=== PATIENT | female | born 1935 | race Caucasian/White ===

== ENCOUNTER 2018-06-17 12:02 | Emergency (ER) | payer OTHER, MEDICARE ==
[~2018-06-17] VITALS: Ht 154.9 cm; Wt 75.3 kg
[~2018-06-17 12:02] MED LIST: ADVAIR 250-501 EACH INH; ADVAIR 250-501 EACH PO; ALBUTEROL2.5 MG/0.1 INH; AMOXICILLIN 50500 MG PO; ANASTROZOLE1 MG PO; ASPIRIN EC325 M1 PO; ATENOLOL 100MG100 M2 PO; AUGMENTIN 875875 M1 PO; CLARITIN10 M2 PO; CLARITIN10 MG PO; DIOVAN 80 MG TA80 M1 PO; DIOVAN40 MG PO; FLONASE 0.05%50 MCG NASAL; FLONASE 0.05%50 MCG SPRAY; FOSAMAX 70 MG T70 MG PO; HYDROCHLOROTHIA25 M1 PO; NORCO 5-325 TA1 EACH PO; PROAIR HFA8.5 GM INH; ROBITUSSIN DM118 ML PO; ROBITUSSIN15 MG PO; SINGULAIR 10 MG10 M1 PO; TRIAMTERENE-HC1 EAC1 PO; VITAMIN D-32000 UNIT PO; ZADITOR5 M1 OPHTHALMIC
[2018-06-17] MEDS ORDERED: COZAAR 25 MG TA25 M1 PO (13:08)
[2018-06-17] MEDS ORDERED: ADVAIR HFA 230M12 GM INH ×2 (13:09)
[2018-06-17] MEDS ORDERED: TUMS PO (13:13)
[2018-06-17] MEDS ORDERED: ECOTRIN325 MG PO ×2 (13:13)
[2018-06-17] MEDS ORDERED: TYLENOL EXTRA500 MG PO (13:13)
[2018-06-17] MEDS ORDERED: VITAMIN D3400 UNIT PO ×2 (13:14)
[2018-06-17] MEDS ORDERED: B-COMPLEX PLUS1 EACH PO (13:14)
[2018-06-17 13:33] LABS: HEMATOCRIT 37.9 % (37.0-47.0); HEMOGLOBIN 12.6 gm/dL (12.0-15.0); MCH 29.6 pg (26.0-34.0); MCHC 33.1 g/dL (28.0-37.0); MCV 89.3 fL (80.0-100.0); RBC 4.25 mil/uL (4.20-5.00); RDW 13.4 % (10.5-14.5); WBC 12.4 thou/uL (4.0-11.0)
[2018-06-17 13:42] LABS: ANION GAP 13 mmol/L (7-16); BUN 56 mg/dL (7-18); CALCIUM 10.5 mg/dL (8.5-10.1); CHLORIDE 102 mmol/L (98-107); CO2 23 mmol/L (21-32); CREATININE 1.7 mg/dL (0.6-1.0); GLUCOSE 124 mg/dL (74-106); POTASSIUM 4.2 mmol/L (3.5-5.1); SODIUM 138 mmol/L (136-145)
[2018-06-17 13:50] LABS: ALBUMIN 3.3 g/dL (3.4-5.0); LIPASE 144 U/L (73-393); SGOT 19 U/L (15-37); SGPT 31 U/L (30-65); TOTAL BILIRUBIN 0.5 mg/dL (<0.1-1.0); TOTAL PROTEIN 7.3 g/dL (6.4-8.2); TROPONIN-I <0.06 ng/mL (<0.06)
[2018-06-17 14:06] LABS: URINE BILIRUBIN NEGATIVE (Negative); URINE BLOOD NEGATIVE (Negative); URINE CLARITY CLEAR; URINE COLOR YELLOW; URINE GLUCOSE-RANDOM* NEGATIVE (Negative); URINE KETONES NEGATIVE (Negative); URINE LEUKOCYTES-REFLEX TRACE (Negative); URINE NITRITE-REFLEX NEGATIVE (Negative); URINE PROTEIN (DIPSTICK) NEGATIVE (Negative); URINE SPECIFIC GRAVITY <= 1.005 (1.005-1.035); URINE UROBILINOGEN 0.2 E.U./dl (0.2-1.0)
[2018-06-17] MEDS ORDERED: PYRIDOXINE HCL50 MG PO (14:26)
[2018-06-17] MEDS ORDERED: ZYRTEC10 M4 PO (14:26)
[2018-06-17] MEDS ORDERED: ROBITUSSIN COU237 M2 PO (14:27)
[2018-06-17] MEDS ORDERED: VITAMIN D1000 UNI1 PO (14:31)
[2018-06-17] MEDS ORDERED: ZOFRAN4 MG PO (15:13)
[2018-06-17] MEDS ORDERED: CIPROFLOXACIN500 M1 PO (15:13)
[2018-06-17] MEDS ORDERED: FLAGYL500 M1 PO (15:13)
[2018-06-17 15:34] VITALS: BP 134/56
--- NOTE | 2018-06-18 08:23 | EKG ---
[address] [place] [address] ELECTROCARDIOGRAM REPORT Name: JUNITO BASSETT Room #: DEP ANA Pride#: [id number] ������������������ Admission: 06/17/18 ������������������ Attend Phys: Discharge: 06/17/18 ������������������ Date of : 34 Report #: [id number] ����������������������������������������������������������������� [id number] THIS REPORT FOR: //name// [facility] ED Test Date: 2018-06-17 Test Time: 13:03:48 Pat Name: JUNITO BASSETT Department: Room: Gender: F Fisher Eel: . : 1935 Requested By: Jennifer Azul Order Number: [id number] MD: Kaiden Wong Measurements Intervals [place] Rate: 69 P: 9 DE: 222 QRS: -20 QRSD: 102 T: 2 QT: 396 QTc: 425 Interpretive Statements Sinus rhythm Prolonged DE interval Borderline left axis deviation poor R wave progression No previous ECG available for comparison Electronically Signed On 06-18-2018 8:22:45 CDT by Kaiden Wong [email or web address] ��������������������������������������������� <ELECTRONICALLY SIGNED> ���������������������������������������� By: Kaiden Wong MD, [facility] ��������������������������������������������� 06/18/18 0822 1303 1303 Kaiden Wong MD, FACC /EPI
== END 2018-06-17 15:35 | disposition home or self-care (01) ==
LOC: ER 12:02
PROVIDERS: Student in an Organized Health Care Education/Training Program
DX: K57.32 Diverticulitis of large intestine without perforation or abscess without bleeding (principal); I10 Essential (primary) hypertension; J45.909 Unspecified asthma, uncomplicated; Z90.49 Acquired absence of other specified parts of digestive tract; Z90.710 Acquired absence of both cervix and uterus; Z90.12 Acquired absence of left breast and nipple; Z88.1 Allergy status to other antibiotic agents; Z88.2 Allergy status to sulfonamides

== ENCOUNTER 2018-06-19 06:42 | Emergency (ER) | payer OTHER, MEDICARE ==
[~2018-06-19] VITALS: Ht 157.5 cm; Wt 75.3 kg
[~2018-06-19 06:42] MED LIST changes: +ADVAIR HFA 230M12 GM INH; +B-COMPLEX PLUS1 EACH PO; +CIPROFLOXACIN500 M1 PO; +COZAAR 25 MG TA25 M1 PO; +ECOTRIN325 MG PO; +FLAGYL500 M1 PO; +PYRIDOXINE HCL50 MG PO; +ROBITUSSIN COU237 M2 PO; +TUMS PO; +TYLENOL EXTRA500 MG PO; +VITAMIN D1000 UNI1 PO; +VITAMIN D3400 UNIT PO; +ZOFRAN4 MG PO; +ZYRTEC10 M4 PO
[2018-06-19] MEDS ORDERED: ANTIVERT25 MG PO (07:35)
[2018-06-19 08:47] VITALS: BP 135/53
== END 2018-06-19 08:59 | disposition home or self-care (01) ==
LOC: ER 06:42
DX: K57.92 Diverticulitis of intestine, part unspecified, without perforation or abscess without bleeding (principal); R11.0 Nausea; R42 Dizziness and giddiness; I10 Essential (primary) hypertension; J45.909 Unspecified asthma, uncomplicated; Z90.49 Acquired absence of other specified parts of digestive tract; Z90.710 Acquired absence of both cervix and uterus; Z85.3 Personal history of malignant neoplasm of breast; Z90.12 Acquired absence of left breast and nipple; Z88.2 Allergy status to sulfonamides; Z88.8 Allergy status to other drugs, medicaments and biological substances

== ENCOUNTER 2018-06-20 18:50 | Emergency (ER) | payer OTHER, MEDICARE ==
[~2018-06-20] VITALS: Ht 157.5 cm; Wt 75.3 kg
[~2018-06-20 18:50] MED LIST changes: +ANTIVERT25 MG PO
[2018-06-20 20:58] VITALS: BP 128/54
--- NOTE | 2018-06-21 01:27 | EKG ---
[address] [place] [address] ELECTROCARDIOGRAM REPORT Name: JUNITO BASSETT Room #: DEP ANA Pride#: [id number] ������������������ Admission: 06/20/18 ������������������ Attend Phys: Discharge: 06/20/18 ������������������ Date of : 34 Report #: [id number] ����������������������������������������������������������������� [id number] THIS REPORT FOR: //name// [facility] ED Test Date: 2018-06-20 Test Time: 19:34:09 Pat Name: JUNITO BASSETT Department: Room: Gender: F Finance Clerk: GILSON : 1935 Requested By: Black Campbell Order Number: [id number] MD: Jesu Galdamez Measurements Intervals [place] Rate: 63 P: 46 OK: 246 QRS: -16 QRSD: 104 T: 2 QT: 436 QTc: 447 Interpretive Statements Sinus rhythm Prolonged [place] interval Poor R-wave progression Leftward axis Nonspecific ST-T wave changes Compared to ECG 06/17/2018 13:03:48 No significant changes Electronically Signed On 06-21-2018 1:27:32 CDT by Jesu Galdamez [email or web address] ��������������������������������������������� <ELECTRONICALLY SIGNED> ���������������������������������������� By: Jesu Galdamez MD ��������������������������������������������� 04/04/107 33 33 Jesu Galdamez MD /EPI
== END 2018-06-20 20:59 | disposition home or self-care (01) ==
LOC: ER 18:50
DX: R42 Dizziness and giddiness (principal); M43.6 Torticollis; R10.9 Unspecified abdominal pain; I10 Essential (primary) hypertension; J45.909 Unspecified asthma, uncomplicated; Z85.3 Personal history of malignant neoplasm of breast; Z88.1 Allergy status to other antibiotic agents; Z88.2 Allergy status to sulfonamides; Z88.8 Allergy status to other drugs, medicaments and biological substances

== ENCOUNTER 2018-06-22 10:23 | Inpatient (IN) | payer OTHER, MEDICARE ==
[~2018-06-22] VITALS: Ht 157.5 cm; Wt 74.8 kg
[2018-06-22 11:20] VITALS: BP 117/55
[2018-06-22 13:00] LABS: EOSINOPHILS 1.1 % (0.0-3.0); HEMOGLOBIN 12.7 gm/dL (12.0-15.0); LYMPHOCYTES 50.6 % (24.0-44.0); MCH 29.7 pg (26.0-34.0); MCHC 33.4 g/dL (28.0-37.0); MCV 89.1 fL (80.0-100.0); MONOCYTES 5.8 % (1.0-8.0); POLYS 41.5 % (36.0-66.0); RBC 4.26 mil/uL (4.20-5.00); RDW 13.3 % (10.5-14.5)
[2018-06-22 13:01] LABS: PLATELET COUNT 147 thou/uL (150-400)
[2018-06-22 13:20] LABS: ALBUMIN 3.4 g/dL (3.4-5.0); CALCIUM 9.9 mg/dL (8.5-10.1); CREATININE 1.7 mg/dL (0.6-1.0); POTASSIUM 3.3 mmol/L (3.5-5.1); TOTAL BILIRUBIN 0.6 mg/dL (<0.1-1.0)
[2018-06-22 16:04] VITALS: BP 111/41
--- NOTE | 2018-06-22 18:44 | NUR ---
PT ARRIVED 1055 WITH ARRIVED FROM HOME. PT ALERT XS4. IV PLACED. ADMISSION PAPERWORK COMPLETED. PUT ON C-DIFF PRECAUTIONS. PT ADMITTED WITH DIVERTICULITIS.
[2018-06-22 19:50] VITALS: BP 103/43
[2018-06-23 04:39] VITALS: BP 107/47
--- NOTE | 2018-06-23 04:56 | NUR ---
ASSUMED CARE AT START OF SHIFT , CONITNUE TO HAVE LOOSE STOOLS, URINE SAMPLE SENT, DENIES NAUSEA, UP TO BATHROOM WITH CANE GAIT SLIGHTY UNSTEADY BEDALARM ON FOR SAFETY. DISCUSSED PLAN OF CARE AND AGREEABLE VERBALIZED UNDERSTANDING.
[2018-06-23 06:00] LABS: HEMATOCRIT 34.6 % (37.0-47.0); HEMOGLOBIN 11.5 gm/dL (12.0-15.0); MCHC 33.2 g/dL (28.0-37.0); MCV 90.1 fL (80.0-100.0); RBC 3.84 mil/uL (4.20-5.00); RDW 13.6 % (10.5-14.5); WBC 10.7 thou/uL (4.0-11.0)
[2018-06-23 06:25] LABS: CALCIUM 8.8 mg/dL (8.5-10.1); CREATININE 1.5 mg/dL (0.6-1.0); POTASSIUM 3.6 mmol/L (3.5-5.1)
[2018-06-23 06:28] LABS: URINE BILIRUBIN NEGATIVE (Negative); URINE BLOOD NEGATIVE (Negative); URINE CLARITY CLEAR; URINE COLOR YELLOW; URINE GLUCOSE-RANDOM* NEGATIVE (Negative); URINE KETONES NEGATIVE (Negative); URINE LEUKOCYTES-REFLEX TRACE (Negative); URINE NITRITE-REFLEX NEGATIVE (Negative); URINE PROTEIN (DIPSTICK) NEGATIVE (Negative); URINE UROBILINOGEN 0.2 E.U./dl (0.2-1.0)
[2018-06-23 07:57] VITALS: BP 103/38
--- NOTE | 2018-06-23 09:55 | NUR ---
CM VISITED WITH PT AT BEDSIDE, SHE PREFERRS GOING BY [facility], IS ABLE TO MAKE HER NEEDS KNOW. A & O X 3, ENJOYS VISITED WITH STAFF. INTRO TO CM AND TRANSITION OF CARE, HOME HEALTH AND POST ACUTE. PT REPORTED " HOME WITH JAKE, SAFE AND SUPPORTIVE. 1 FLOOR HOME, STAIR GLIDE TO LAUNDRY ROOM. RISEN TOILET, GRAB BAR AND POLE, SHOWER CHAIR. MANAGE OWN MEDICATION, COOK, CLEANS, STILL DRIVE VEHICLE. NO HH OR REHAB IN PAST. PLAN ON GOING HOME WHEN DR SAY READY. "/[facility]. WILL CONT FOLLOWING NEEDED FOR DC NEEDS. DCP HOME
--- NOTE | 2018-06-23 10:56 | NUR ---
Nutrition: Pt admitted with sigmoid diverticulitis. Seen for 2 pt risk. Appetite good. Has been on liquid diet since 06/17 for diverticulitis healing, now advanced to soft/fiber restricted. Intake 75%. UBW around 170 lbs, current 165 lbs. Provided nutrition education on diverticulitis/diverticulosis. Low nutrition risk.
--- NOTE | 2018-06-23 12:18 | H ---
[facility] [place] [address] HISTORY AND PHYSICAL Name: JUNITO BASSETT Room #: 464-P [facility] IN M.R.#: [id number] Admission: 06/22/18 ������������������ Attend Phys: Bo Agee MD Discharge: ������������������ Date of : 34 Report #: [id number] THIS REPORT FOR: //name// CC: Reinaldo Agee DATE OF SERVICE: 06/22/2018 CHIEF COMPLAINT: Abdominal pain and nausea. HISTORY OF PRESENT ILLNESS: The patient is an 83-year-old female who is admitted through the office with abdominal pain and recent development of nausea and diarrhea. She was having left lower quadrant and left abdominal sided pain last week and was seen in the ER around the . At that time, a CT suggested sigmoid diverticulitis. She was discharged home with Cipro and Flagyl; however, pain persisted and she ended up going back to the Emergency Room on Thursday and Thursday this past weekend. The same treatment plan was continued. However, last night and this morning she developed nausea and had a bout of diarrhea. Dr. Rider directed her for admission. PAST MEDICAL HISTORY: Breast cancer with remote left mastectomy in 2012, hypertension, asthma. PAST SURGICAL HISTORY: She had a lap juani in 1994, hysterectomy 2001. FAMILY HISTORY: Noncontributory. SOCIAL HISTORY: She is , lives at home. No chronic alcohol or tobacco use. ALLERGIES: SULFA, LEVAQUIN. MEDICATIONS: Flonase, Singulair, Claritin, Advair, hydrochlorothiazide, Diovan, atenolol, Claritin, Maxzide, Flagyl, Cipro. REVIEW OF SYSTEMS: She denies headache, chest pain, shortness of breath, abdominal pain, dysuria, syncope. OBJECTIVE: VITAL SIGNS: Temperature 36.2, pulse 67, respirations 13, blood pressure 117/55, O2 sat 99% on room air. GENERAL: She is awake and alert, in no distress. HEAD AND NECK: Unremarkable. LUNGS: Clear. HEART: Regular. ABDOMEN: Soft, normoactive bowel sounds. No rebound or guarding. [facility] [address] [place] [address] HISTORY AND PHYSICAL Name: JUNITO BASSETT Room #: 464-P [facility] IN M.R.#: [id number] Admission: 06/22/18 ������������������ Attend Phys: Bo Agee MD Discharge: ������������������ Date of : 34 Report #: [id number] EXTREMITIES: No cyanosis, clubbing or edema. NEUROLOGIC: Cranial nerves intact. She is alert and oriented. LABORATORY DATA: White count is 12, hemoglobin 12. Potassium 3.3, creatinine 1.7. CT abdomen revealed diverticular inflammation that has improved since the and almost resolved. ASSESSMENT: 1. Diverticulitis, sigmoid colon. 2. Hypokalemia. 3. Prerenal azotemia, likely medication effect. 4. Nausea, likely medication effect. 5. Hypertension. PLAN: Switch her to Zosyn. She may be having some GI distress from the Flagyl. If she has any more diarrhea, rule out Clostridium difficile, but she does not look toxic. CT imaging shows improvement of her underlying diverticulitis. Blood pressure is a little on the low end at this point, we will hold off on her medicines and repeat her lab in the morning. ��������������������������������������������� <ELECTRONICALLY SIGNED> ���������������������������������������� By: Bo Agee MD ��������������������������������������������� 06/23/18 1218 1544 1559 Bo Agee MD /nt
[2018-06-23 14:11] VITALS: BP 98/47
--- NOTE | 2018-06-23 18:41 | NUR ---
AAOX4 VERY PLESANT AND COOPERATIVE. NO C/O PAIN OR DISCOMFORT. LUNGS CLEAR ON ROOM AIR. SKIN INTACT. GOOD APPETITE. UAL IN ROOM WITHOUT ASSISTANCE. SLOW STEADY GAIT. IV RIGHT HAND FLUSHES EASLILY. NO BM THIS SHIFT. REMAINS IN CONTACT ISOLATION.
[2018-06-23 19:49] VITALS: BP 113/48
[2018-06-24 05:15] VITALS: BP 123/52
[2018-06-24 06:07] LABS: CALCIUM 9.2 mg/dL (8.5-10.1); CREATININE 1.4 mg/dL (0.6-1.0); POTASSIUM 3.6 mmol/L (3.5-5.1)
--- NOTE | 2018-06-24 07:38 | NUR ---
PATIENT WAS COMFORTABLE AND SLEPT MOST OF THE NIGHT. PATIENT DID NOT COMPLAIN ABOUT N/V OF LOOSE STOOLS THIS SHIFT. ABX TREATMENT WAS COMPLETED. PATIENT IS PROGRESSING TOWARDS DISCHARGE GOALS. POSSIBLE DC IN THE AM.
[2018-06-24 07:55] VITALS: BP 107/39
[2018-06-24] MEDS ORDERED: CIPRO500 MG PO (10:10)
[2018-06-24 10:25] VITALS: BP 107/39
--- NOTE | 2018-06-24 11:35 | NUR ---
ASSUMED PATIENT CARE AT 0715. A&OX4. NO COMPLAINTS OF PAIN. STAND BY ASSIST. USES CANE. STOOL THIS AM, STOOL SOFT. CLEARED FOR DISCHARGE BY DOCTOR. IV DC'D. DISCHARGE INSTRUCTIONS GIVEN.
--- NOTE | 2018-06-29 09:32 | D ---
[facility] [place] [address] DISCHARGE SUMMARY Name: JUNITO BASSETT Room #: 464-P [facility] IN M.R.#: [id number] Admission: 06/22/18 ������������������ Attend Phys: Bo Agee MD Discharge: 06/24/18 ������������������ Date of : 34 Report #: [id number] THIS REPORT FOR: //name// CC: Reinaldo Agee FINAL DIAGNOSIS: Diverticulitis. HOSPITAL COURSE: The patient was admitted after three ER trips for diverticulitis. She was complaining of nausea and diarrhea. The nausea, I felt, was related to oral Flagyl, which was discontinued. She received IV Zosyn. Followup CT showed near resolution of the area of inflammation on the sigmoid colon. Blood cultures were negative. She had some mild prerenal azotemia related to her diuretic, which was discontinued. Blood pressure medicines were held as well. She had no other interval complication. There were some soft stools and a C. diff was ordered, but subsequently cancelled as she was not having typical diarrhea. PHYSICAL EXAMINATION: GENERAL: On the day of discharge, she was awake and alert, in no distress. VITAL SIGNS: Stable. LUNGS: Clear. HEART: Regular. ABDOMEN: Soft. Normoactive bowel sounds. EXTREMITIES: No edema. DISPOSITION: She will be discharged to home with diet and activity as tolerated. She will finish 3 more days of Cipro. I have asked her to hold her atenolol at home until she comes in for a blood pressure check. ��������������������������������������������� <ELECTRONICALLY SIGNED> ���������������������������������������� By: Bo Agee MD ��������������������������������������������� 06/29/18 0932 1102 1327 Bo Agee MD /nt
== END 2018-06-24 11:48 | disposition home or self-care (01) | DRG 391 ==
LOC: 4W 10:23 → ENTRNSPT 06-24 11:34 → EDTRNSPTSTS 06-24 11:36 → 4W 06-24 11:48
PROVIDERS: ADMIT Internal Medicine Geriatric Medicine
DX: K57.32 Diverticulitis of large intestine without perforation or abscess without bleeding (principal); N17.0 Acute kidney failure with tubular necrosis; I10 Essential (primary) hypertension; J45.909 Unspecified asthma, uncomplicated; E87.6 Hypokalemia; E86.0 Dehydration; Z85.3 Personal history of malignant neoplasm of breast; Z90.12 Acquired absence of left breast and nipple; Z88.2 Allergy status to sulfonamides; Z88.8 Allergy status to other drugs, medicaments and biological substances; Z88.1 Allergy status to other antibiotic agents; Z79.82 Long term (current) use of aspirin; Z79.899 Other long term (current) drug therapy; Z90.710 Acquired absence of both cervix and uterus; Z90.49 Acquired absence of other specified parts of digestive tract
CPT/HCPCS: 10045; 10047

== ENCOUNTER 2019-03-17 13:10 | Emergency (ER) | payer OTHER, MEDICARE ==
[~2019-03-17] VITALS: Ht 157.5 cm; Wt 72.6 kg
[~2019-03-17 13:10] MED LIST changes: +CIPRO500 MG PO
[2019-03-17 15:57] LABS: HEMATOCRIT 40.9 % (37.0-47.0); HEMOGLOBIN 13.3 gm/dL (12.0-15.0); MCH 29.6 pg (26.0-34.0); MCHC 32.6 g/dL (28.0-37.0); MCV 90.9 fL (80.0-100.0); PLATELET COUNT 144 thou/uL (150-400); RDW 14.4 % (10.5-14.5); WBC 15.2 thou/uL (4.0-11.0)
[2019-03-17 16:15] LABS: ABSOLUTE NEUTROPHILS 5.9 thou/uL (1.4-8.2); ATYPICAL LYMPHS 39 %
[2019-03-17 16:16] LABS: ALBUMIN 3.8 g/dL (3.4-5.0); CREATININE 1.2 mg/dL (0.6-1.0); PLATELET ESTIMATE NORMAL; POTASSIUM 3.7 mmol/L (3.5-5.1); TOTAL BILIRUBIN 0.7 mg/dL (<0.1-1.0); TOTAL PROTEIN 7.5 g/dL (6.4-8.2)
[2019-03-17 16:17] LABS: CALCIUM 10.6 mg/dL (8.5-10.1)
[2019-03-17 17:32] LABS: URINE BILIRUBIN NEGATIVE (Negative); URINE BLOOD NEGATIVE (Negative); URINE CLARITY CLOUDY; URINE COLOR YELLOW; URINE GLUCOSE-RANDOM* NEGATIVE (Negative); URINE KETONES NEGATIVE (Negative); URINE PROTEIN (DIPSTICK) NEGATIVE (Negative); URINE UROBILINOGEN 0.2 E.U./dl (0.2-1.0)
[2019-03-17 17:39] LABS: URINE LEUKOCYTES-REFLEX 2+ (Negative); URINE NITRITE-REFLEX POSITIVE (Negative)
[2019-03-17 17:49] LABS: BACTERIA-REFLEX >30 Many /HPF (None Seen); CASTS None Seen /LPF (None Seen); CRYSTALS None Seen /LPF (None Seen); SQUAMOUS 0-3 Few /LPF (0-3); URINE RBC None Seen /HPF (0-2); URINE WBC-REFLEX >25 Many /HPF (0-5)
[2019-03-17] MEDS ORDERED: MACROBID 100 M100 MG PO (18:44)
[2019-03-17 19:11] VITALS: BP 132/77
== END 2019-03-17 19:11 | disposition home or self-care (01) ==
LOC: ER 13:10
PROVIDERS: Physician Assistant
DX: N39.0 Urinary tract infection, site not specified (principal); D72.829 Elevated white blood cell count, unspecified; I10 Essential (primary) hypertension; J45.909 Unspecified asthma, uncomplicated; Z85.3 Personal history of malignant neoplasm of breast; Z90.12 Acquired absence of left breast and nipple; Z90.49 Acquired absence of other specified parts of digestive tract; Z90.710 Acquired absence of both cervix and uterus; Z91.048 Other nonmedicinal substance allergy status; Z88.1 Allergy status to other antibiotic agents; Z88.2 Allergy status to sulfonamides

== ENCOUNTER → 2019-03-29 | Outpatient (CLI) | payer OTHER, MEDICARE ==
[~2019-03-29] MED LIST changes: +MACROBID 100 M100 MG PO
== END ==
LOC: SJCVC 15:24
DX: I21.29 ST elevation (STEMI) myocardial infarction involving other sites (principal); I44.0 Atrioventricular block, first degree; R94.31 Abnormal electrocardiogram [ECG] [EKG]; I10 Essential (primary) hypertension; E78.5 Hyperlipidemia, unspecified; R55 Syncope and collapse; J45.909 Unspecified asthma, uncomplicated; Z85.3 Personal history of malignant neoplasm of breast; Z79.899 Other long term (current) drug therapy

== ENCOUNTER → 2019-09-07 | Outpatient (CLI) | payer OTHER, MEDICARE | LOC: SJCVC 14:19 | PROVIDERS: ATTEND Internal Medicine | DX: I44.0 Atrioventricular block, first degree (principal); R94.31 Abnormal electrocardiogram [ECG] [EKG]; I10 Essential (primary) hypertension; R55 Syncope and collapse; E78.5 Hyperlipidemia, unspecified; C91.10 Chronic lymphocytic leukemia of B-cell type not having achieved remission; C50.412 Malignant neoplasm of upper-outer quadrant of left female breast; J45.909 Unspecified asthma, uncomplicated; Z17.0 Estrogen receptor positive status [ER+]; Z79.899 Other long term (current) drug therapy; Z82.49 Family history of ischemic heart disease and other diseases of the circulatory system ==

== ENCOUNTER 2019-11-27 16:45 | Emergency (ER) | payer OTHER, MEDICARE ==
[~2019-11-27] VITALS: Ht 160 cm; Wt 76.7 kg
[2019-11-27] MEDS ORDERED: ATENOLOL 50MG T50 MG PO (17:09)
[2019-11-27] MEDS ORDERED: TRIAMTERENE/HCT1 CA1 PO (17:09)
[2019-11-27] MEDS ORDERED: WIXELA 250-501 EACH INH (17:10)
[2019-11-27] MEDS ORDERED: VITAMIN B-6100 MG PO (17:12)
[2019-11-27] MEDS ORDERED: NOLVADEX20 MG PO (17:14)
[2019-11-27] MEDS ORDERED: TRAMADOL 50 MG50 MG PO ×2 (17:15)
[2019-11-27] MEDS ORDERED: AUGMENTIN 500-1 EACH PO (19:46)
[2019-11-27 19:48] VITALS: BP 128/51
--- NOTE | 2019-11-28 10:18 | EKG ---
[facility] [place] [address] ELECTROCARDIOGRAM REPORT Name: JUNITO BASSETT Room #: DEP Bigg#: [id number] Admission: 11/27/19 Attend Phys: Discharge: 11/27/19 Date of : 34 Report #: [id number] THIS REPORT FOR: cc: Reinaldo Rider MD, Christopher B. MD Lundgren,Kaiden Franco MD [facility] ~ THIS REPORT FOR: //name// [facility] ED Test Date: 2019-11-27 Test Time: 17:13:05 Pat Name: JUNITO BASSETT Department: Room: Gender: Endoscope Technician: NO : 1935 Requested By: Sandra Campbell Order Number: [id number] MD: Kaiden Wong Measurements Intervals [place] Rate: 61 P: 0 SC: 194 QRS: -21 QRSD: 97 T: 0 QT: 408 QTc: 411 Interpretive Statements Sinus rhythm with prolonged SC interval Inferior infarct, old Poor R wave progression Compared to ECG 06/20/2018 19:34:09 No significant change was found Electronically Signed On 11-28-2019 10:18:00 CDT by Kaiden Wong [email or web address] <ELECTRONICALLY SIGNED> By: Kaiden Wong MD, [facility] 11/28/19 1018 1713 1713 Kaiden Wong MD, [facility] /EPI
== END 2019-11-27 20:13 | disposition home or self-care (01) ==
LOC: ER 16:45
DX: S01.511A Laceration without foreign body of lip, initial encounter (principal); S80.02XA Contusion of left knee, initial encounter; I10 Essential (primary) hypertension; J45.909 Unspecified asthma, uncomplicated; Z90.710 Acquired absence of both cervix and uterus; Z79.899 Other long term (current) drug therapy; Z79.82 Long term (current) use of aspirin; Z88.2 Allergy status to sulfonamides; Z91.048 Other nonmedicinal substance allergy status; Z91.09 Other allergy status, other than to drugs and biological substances; Z88.1 Allergy status to other antibiotic agents; W18.39XA Other fall on same level, initial encounter; Y93.89 Activity, other specified; Y92.89 Other specified places as the place of occurrence of the external cause; Y99.8 Other external cause status

== ENCOUNTER 2019-12-02 12:37 | Emergency (ER) | payer OTHER, MEDICARE ==
[~2019-12-02] VITALS: Ht 162.6 cm; Wt 77.1 kg
--- NOTE | ~2019-12-02 | EMS ---
[address] [address] EMS Patient Care Report Name: JUNITO BASSETT Room #: PRE ANA Pride#: [id number] Admission: Attend Phys: Discharge: Date of : 34 Report #: [id number] THIS REPORT FOR: //name// Report Transmitted: 12/02/2019 12:49 EMS Care Summary [facility] MED-ACT Incident [id number] @ 12/02/2019 12:06 Incident Location [address] [place] [address] Patient JUNITO BASSETT Female, 84 Years 1935 Patient Address [address] [place] [address] Patient History Hypertension (HTN), Patient Allergies No known allergies, Patient Medications None Reported, Chief Complaint nausea Disposition Transported No Lights/[place] Dispatch Reason Sick Person Transported To [facility] Narrative Upon arrival pt was sitting on a chair, presented w/o distress. Pt stated she went to the bathroom thought she was having diarrhea and started feeling nauseous. Pt denied vomiting or syncope. Pt stated she felt slightly dizzy. Pt stated she called 911 because her unable to take her per [facility] [address] [address] EMS Patient Care Report Name: JUNITO BASSETT Room #: [facility] Memo.#: [id number] Admission: Attend Phys: Discharge: Date of : 34 Report #: [id number] vehicle. Pt denied nausea upon contact and was advised to report any nausea to receive nausea medicine when it needed. Pt walked few steps to the stretcher w/o difficulty and then moved into the unit. in the unit, pt's vitals were monitored and remained stable during transport. Initial Vitals @PTAP: 67,BP: 133/79,SpO2: 99, @12:25P: 64,R: 18,BP: 147/69,Pain: 0/10,GCS: 15,SpO2: 100,Revised Trauma: 12,MD Suspected: false Assessments @12:31MENTAL:No Abnormalities,SKIN:No Abnormalities,HEENT:Head/Face: No Abnormalities,Eyes: No Abnormalities,Neck/Airway: No Abnormalities,LUNG SOUNDS:General: No Abnormalities,Left Upper: No Abnormalities,Right Upper: No Abnormalities,Left Lower: No Abnormalities,Right Lower: No Abnormalities,ABDOMEN:General: No Abnormalities,Left Upper: No Abnormalities,Right Upper: No Abnormalities,Left Lower: No Abnormalities,Right Lower: No Abnormalities,PELVIS//GI:No Abnormalities,EXTREMITIES:Left Arm: No Abnormalities,Right Arm: No Abnormalities,Left Leg: No Abnormalities,Right Leg: No Abnormalities,PULSE:NEURO:No Abnormalities, Impression Nausea Timeline DOG AND CAT FOOD COOK,BP: 133/79 M,PULSE: 67,RR: R,SPO2: 99 Ox,ETCO2: ,BG: ,PAIN: ,GCS: , 12:05,Call Received 12:05,Psap Call 12:06,Dispatched 12:07,En Route 12:16,On Scene 12:17,At Patient 12:24,Depart Scene 12:25,BP: 147/69 M,PULSE: 64,RR: 18 R,SPO2: 100 Ox,ETCO2: ,BG: ,PAIN: 0,GCS: 15, 12:32,At Destination 12:48,Call Closed Disclaimer v1.1 Copyright 2020 [employer] This EMS Care Summary contains data elements from the applicable legal record (which may be displayed differently). It is designed to provide pertinent information for the following purposes: continuity of care, clinical quality, and state data reporting. The complete legal record is available to ED staff and administrators of the receiving hospital in [employer]'s Patient Tracker. All data [facility] [address] [place] [address] EMS Patient Care Report Name: JUNITO BASSETT Room #: PRE M.RBe#: [id number] Admission: Attend Phys: Discharge: Date of : 34 Report #: [id number] is provided "as is."
[~2019-12-02 12:37] MED LIST changes: +ATENOLOL 50MG T50 MG PO; +AUGMENTIN 500-1 EACH PO; +NOLVADEX20 MG PO; +TRAMADOL 50 MG50 MG PO; +TRIAMTERENE/HCT1 CA1 PO; +VITAMIN B-6100 MG PO; +WIXELA 250-501 EACH INH
[2019-12-02 13:46] LABS: ABSOLUTE NEUTROPHILS 5.3 thou/uL (1.4-8.2); BASOPHILS 1.1 % (0.0-2.0); EOSINOPHILS 1.3 % (0.0-3.0); HEMATOCRIT 38.4 % (37.0-47.0); HEMOGLOBIN 12.8 gm/dL (12.0-15.0); LYMPHOCYTES 44.8 % (24.0-44.0); MCH 30.7 pg (26.0-34.0); MCHC 33.4 g/dL (28.0-37.0); MCV 91.9 fL (80.0-100.0); MONOCYTES 5.8 % (1.0-8.0); RBC 4.18 mil/uL (4.20-5.00); RDW 13.6 % (10.5-14.5); WBC 11.3 thou/uL (4.0-11.0)
--- NOTE | 2019-12-02 13:56 | EKG ---
[facility] [place] [address] ELECTROCARDIOGRAM REPORT Name: JUNITO BASSETT Room #: PRE M.R.#: [id number] Admission: Attend Phys: Discharge: Date of : 34 Report #: [id number] THIS REPORT FOR: cc: Reinaldo Rider MD, Christopher B. 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 Control Counselor: LEONEL : 1935 Requested By: Evon Deshpande Order Number: [id number] MD: Fred Samson Measurements Intervals [place] Rate: 61 P: -21 MO: 268 QRS: -19 QRSD: 98 T: 4 QT: 402 QTc: 405 Interpretive Statements Sinus rhythm Prolonged [place] interval Borderline left axis deviation Anterior infarct, old Compared to ECG 11/27/2019 17:13:05 Poor R-wave progression no longer present Myocardial infarct finding still present Electronically Signed On 12-02-2019 13:56:02 CDT by Fred Samson [email or web address] <ELECTRONICALLY SIGNED> By: Fred Samson MD, FAC 12/02/19 1356 1253 1253 Fred Samson MD, [facility] /EPI
[2019-12-02 14:01] LABS: URINE BILIRUBIN NEGATIVE (Negative); URINE BLOOD NEGATIVE (Negative); URINE CLARITY CLEAR; URINE COLOR YELLOW; URINE GLUCOSE-RANDOM* NEGATIVE (Negative); URINE KETONES NEGATIVE (Negative); URINE LEUKOCYTES-REFLEX NEGATIVE (Negative); URINE NITRITE-REFLEX NEGATIVE (Negative); URINE PROTEIN (DIPSTICK) NEGATIVE (Negative); URINE UROBILINOGEN 0.2 E.U./dl (0.2-1.0)
[2019-12-02 14:19] LABS: AMP/METHAMP Negative (Negative); BARBITURATES Negative (Negative); BENZODIAZEPINES Negative (Negative); COCAINE Negative (Negative); METHADONE Negative (Negative); OPIATES Negative (Negative); PCP Negative (Negative)
[2019-12-02 14:24] LABS: PLATELET COUNT 106 thou/uL (150-400)
[2019-12-02 14:31] LABS: ANION GAP 13 mmol/L (7-16); BUN 28 mg/dL (7-18); CALCIUM 9.6 mg/dL (8.5-10.1); CHLORIDE 100 mmol/L (98-107); CO2 22 mmol/L (21-32); GLUCOSE 103 mg/dL (74-106); POTASSIUM 4.4 mmol/L (3.5-5.1); SODIUM 135 mmol/L (136-145)
[2019-12-02 14:41] LABS: ALBUMIN 3.3 g/dL (3.4-5.0); SGOT 29 U/L (15-37); SGPT 22 U/L (30-65); TOTAL BILIRUBIN 0.9 mg/dL (0.2-1.0); TOTAL PROTEIN 6.9 g/dL (6.4-8.2); TROPONIN-I <0.06 ng/mL (<0.06)
[2019-12-02] MEDS ORDERED: TRIAMTERENE/HCT1 CA1 PO (15:31)
[2019-12-02] MEDS ORDERED: WIXELA 250-501 EACH INH (15:31)
[2019-12-02 16:33] VITALS: BP 161/64
== END 2019-12-02 16:33 | disposition home or self-care (01) ==
LOC: ER 12:37
PROVIDERS: Physician Assistant
DX: R53.1 Weakness (principal); I10 Essential (primary) hypertension; J45.909 Unspecified asthma, uncomplicated; Z90.710 Acquired absence of both cervix and uterus; Z79.899 Other long term (current) drug therapy; Z88.2 Allergy status to sulfonamides; Z88.1 Allergy status to other antibiotic agents; Z91.048 Other nonmedicinal substance allergy status; Z91.09 Other allergy status, other than to drugs and biological substances

== ENCOUNTER → 2020-03-08 | Outpatient (CLI) | payer OTHER, MEDICARE | LOC: SJCVC 13:14 | PROVIDERS: ATTEND Internal Medicine | DX: R94.31 Abnormal electrocardiogram [ECG] [EKG] (principal); I44.0 Atrioventricular block, first degree; I10 Essential (primary) hypertension; E78.5 Hyperlipidemia, unspecified; R55 Syncope and collapse; E78.00 Pure hypercholesterolemia, unspecified; J45.909 Unspecified asthma, uncomplicated; Z79.899 Other long term (current) drug therapy ==

== ENCOUNTER → 2020-09-06 | Outpatient (CLI) | payer OTHER, MEDICARE | LOC: SJCVC 13:14 | PROVIDERS: ATTEND Internal Medicine | DX: R94.31 Abnormal electrocardiogram [ECG] [EKG] (principal); I44.0 Atrioventricular block, first degree; I10 Essential (primary) hypertension; E78.5 Hyperlipidemia, unspecified; R55 Syncope and collapse; E78.00 Pure hypercholesterolemia, unspecified; J45.909 Unspecified asthma, uncomplicated; Z82.49 Family history of ischemic heart disease and other diseases of the circulatory system; Z79.82 Long term (current) use of aspirin; Z79.899 Other long term (current) drug therapy; Z88.8 Allergy status to other drugs, medicaments and biological substances ==

== ENCOUNTER 2020-12-27 08:20 | Emergency (ER) | payer OTHER, MEDICARE ==
[~2020-12-27] VITALS: Ht 160 cm; Wt 75.8 kg
[2020-12-27] MEDS ORDERED: COZAAR 25 MG TA25 M1 PO (08:35)
[2020-12-27] MEDS ORDERED: ATENOLOL 25 MG25 M1 PO (08:35)
[2020-12-27] MEDS ORDERED: WIXELA 250-501 EACH INH (08:36)
[2020-12-27] MEDS ORDERED: TRIAMTERENE/HCT1 CA1 PO (08:36)
[2020-12-27] MEDS ORDERED: ZYRTEC10 M5 PO (08:37)
[2020-12-27] MEDS ORDERED: VITAMIN D350 MC4 PO (08:38)
[2020-12-27] MEDS ORDERED: VITAMIN B-650 M1 PO (08:39)
[2020-12-27] MEDS ORDERED: SINGULAIR 10 MG10 M1 PO (08:39)
[2020-12-27] MEDS ORDERED: FLONASE 0.05%50 MCG NARES (08:40)
[2020-12-27] MEDS ORDERED: ECOTRIN325 MG PO (08:40)
[2020-12-27] MEDS ORDERED: PROAIR HFA8.5 GM INH (08:41)
[2020-12-27] MEDS ORDERED: TUMS200 MG PO (08:42)
[2020-12-27] MEDS ORDERED: ROBITUSSIN15 MG/5 ML PO (08:42)
[2020-12-27] MEDS ORDERED: TRAMADOL 50 MG50 MG PO (08:45)
[2020-12-27] MEDS ORDERED: ZADITOR5 M1 (08:45)
[2020-12-27] MEDS ORDERED: PREVAGEN (08:48)
[2020-12-27 09:06] LABS: HEMATOCRIT 38.9 % (37.0-47.0); HEMOGLOBIN 12.7 gm/dL (12.0-15.0); MCH 30.7 pg (26.0-34.0); MCHC 32.7 g/dL (28.0-37.0); MCV 93.8 fL (80.0-100.0); PLATELET COUNT 139 thou/uL (150-400); RBC 4.15 mil/uL (4.20-5.00); RDW 14.6 % (10.5-14.5); WBC 20.5 thou/uL (4.0-11.0)
[2020-12-27 09:21] LABS: CALCIUM 10.3 mg/dL (8.5-10.1); CREATININE 1.2 mg/dL (0.6-1.0)
[2020-12-27 10:06] LABS: ABSOLUTE NEUTROPHILS 4.3 thou/uL (1.4-8.2); ATYPICAL LYMPHS 9 %
[2020-12-27 10:07] LABS: ANISOCYTOSIS 1+
[2020-12-27 10:28] LABS: URINE BILIRUBIN NEGATIVE (Negative); URINE BLOOD TRACE (Negative); URINE CLARITY CLEAR; URINE COLOR YELLOW; URINE GLUCOSE-RANDOM* NEGATIVE (Negative); URINE KETONES NEGATIVE (Negative); URINE NITRITE-REFLEX NEGATIVE (Negative); URINE PROTEIN (DIPSTICK) NEGATIVE (Negative); URINE SPECIFIC GRAVITY <= 1.005 (1.005-1.035); URINE UROBILINOGEN 0.2 E.U./dl (0.2-1.0)
[2020-12-27 10:33] LABS: URINE LEUKOCYTES-REFLEX 1+ (Negative)
[2020-12-27 10:37] LABS: BACTERIA-REFLEX 1-9 Few /HPF (None Seen); CASTS None Seen /LPF (None Seen); CRYSTALS None Seen /LPF (None Seen); SQUAMOUS 0-3 Few /LPF (0-3); URINE RBC None Seen /HPF (NONE SEEN); URINE WBC-REFLEX 6-15 Few /HPF (0-5)
[2020-12-27] MEDS ORDERED: MACROBID 100 M100 M1 PO (10:59)
[2020-12-27 12:23] VITALS: BP 144/52
[2020-12-28] MEDS ORDERED: ATENOLOL 25 MG25 M1 PO (09:32)
== END 2020-12-27 12:24 | disposition home or self-care (01) ==
LOC: ER 08:20
PROVIDERS: Emergency Medicine
DX: N39.0 Urinary tract infection, site not specified (principal); R10.32 Left lower quadrant pain; I10 Essential (primary) hypertension; Z90.710 Acquired absence of both cervix and uterus; J45.909 Unspecified asthma, uncomplicated; Z90.12 Acquired absence of left breast and nipple; Z85.3 Personal history of malignant neoplasm of breast; Z85.6 Personal history of leukemia; Z79.82 Long term (current) use of aspirin; Z79.1 Long term (current) use of non-steroidal anti-inflammatories (NSAID); Z79.899 Other long term (current) drug therapy; Z79.891 Long term (current) use of opiate analgesic; Z88.6 Allergy status to analgesic agent; Z88.2 Allergy status to sulfonamides; Z91.048 Other nonmedicinal substance allergy status; Z91.09 Other allergy status, other than to drugs and biological substances; Z88.8 Allergy status to other drugs, medicaments and biological substances

== ENCOUNTER 2020-12-28 09:28 | Inpatient (IN) | payer OTHER, MEDICARE ==
[~2020-12-28] VITALS: Ht 162.6 cm; Wt 94.1 kg
[2020-12-28] VITALS (7 sets, daily range): BP systolic 131–159; BP diastolic 50–77
--- NOTE | ~2020-12-28 | EMS ---
[facility] [place] [address] EMS Patient Care Report Name: JUNITO BASSETT Room #: 437-P ADM IN M.R.#: [id number] Admission: 12/28/20 Attend Phys: Jorge L Sampson MD Discharge: Date of : 34 Report #: [id number] THIS REPORT FOR: //name// Report Transmitted: 12/28/2020 11:26 EMS Care Summary [facility] MED-ACT Incident [id number] @ 12/28/2020 08:55 Incident Location [address] [place] [address] Patient JUNITO BASSETT Female, 85 Years 1935 Patient Address [address] [place] [address] Patient History Hypertension (HTN),Breast Cancer,Urinary Tract Infection (UTI), Patient Allergies Sulfa,Levaquin, Patient Medications Albuterol, Fosamax, Triamterene, Losartan, Atenolol, Letrozole, Boniva, Chief Complaint I feel very weak and my low back hurts. Disposition Transported No Lights/[place] Dispatch Reason Falls Transported To [facility] Narrative HISTORY. EMS activated to transport this pt to [facility] for evaluation and treatment. Yesterday, this pt was seen at [facility] for a bladder infection. The pt was treated and sent home with medication. The pts was helping the pt get back into her home when she states her legs just "buckled" and she fell to [facility] [place] [address] EMS Patient Care Report Name: JUNITO BASSETT Room #: 437-P ADM IN M.R.#: [id number] Admission: 12/28/20 Attend Phys: Jorge L Sampsno MD Discharge: Date of : 34 Report #: [id number] the ground. No loss of consciousness and the pt did not hit her head. The pt was helped back in the house by additional family members. The pt was not transported back to [facility] at that time. Today, the pt states she feels weak and her low back is in more pain than normal. The pt denies any SOB, chest pain to N/V. This pt has been vaccinated and had her booster. Upon our arrival, the pt is sitting in her wheelchair near the front door. ASSESSMENT INDICATED IN THE CHART. TREATMENT. The pt is lifted from her wheelchair to the EMS cot via a two-person lift. No additional is needed. TRANSPORT. [facility] is the destination. [facility] is contacted. Pt information is given to the staff. VS are monitored. No change. DISPOSITION. The pt is lifted to the ED bed via sheet lift. Pt report and paperwork are given to nursing. M 1149 is clear. 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,BP: 150/70 M,PULSE: 70,RR: 18 R,SPO2: 97 Ox,ETCO2: ,BG: ,PAIN: ,GCS: 15, 08:53,Call Received 08:53,Psap Call 08:55,Dispatched 08:56,En Route 09:09,On Scene 09:10,At Patient 09:16,BP: 149/79 M,PULSE: 68,RR: 16 R,SPO2: 97 Ox,ETCO2: ,BG: ,PAIN: 6,GCS: 15, 09:17,Depart Scene 09:23,BP: 141/66 M,PULSE: 69,RR: 16 R,SPO2: 98 Ox,ETCO2: ,BG: ,PAIN: ,GCS: 15, 09:24,At Destination 09:41,Call Closed Disclaimer v1.1 Copyright 2020 [employer] This EMS Care Summary contains data elements from the applicable legal record [facility] [address] [place] [address] EMS Patient Care Report Name: BASSETTJUNITO Room #: 437-P ADM IN M.R.#: [id number] Admission: 12/28/20 Attend Phys: Jorge L Sampson MD Discharge: Date of : 34 Report #: [id number] (which may be displayed differently). It is designed to provide pertinent information for the following purposes: continuity of care, clinical quality, and state data reporting. The complete legal record is available to ED staff and administrators of the receiving hospital in [facility]s Patient Tracker. All data is provided "as is."
[~2020-12-28 09:28] MED LIST changes: +ATENOLOL 25 MG25 M1 PO; +FLONASE 0.05%50 MCG NARES; +MACROBID 100 M100 M1 PO; +PREVAGEN; +ROBITUSSIN15 MG/5 ML PO; +TUMS200 MG PO; +VITAMIN B-650 M1 PO; +VITAMIN D350 MC4 PO; +ZADITOR5 M1; +ZYRTEC10 M5 PO
[2020-12-28] MEDS ORDERED: ATENOLOL 25 MG25 M1 PO (09:32)
[2020-12-28 10:12] LABS: HEMATOCRIT 41.4 % (37.0-47.0); HEMOGLOBIN 13.3 gm/dL (12.0-15.0); MCH 30.3 pg (26.0-34.0); MCHC 32.1 g/dL (28.0-37.0); MCV 94.3 fL (80.0-100.0); PLATELET COUNT 137 thou/uL (150-400); RBC 4.39 mil/uL (4.20-5.00); RDW 14.8 % (10.5-14.5); WBC 20.5 thou/uL (4.0-11.0)
[2020-12-28 10:15] LABS: CALCIUM 10.1 mg/dL (8.5-10.1); CREATININE 1.4 mg/dL (0.6-1.0)
[2020-12-28 11:26] LABS: ATYPICAL LYMPHS 1 %
[2020-12-28 11:27] LABS: ABSOLUTE NEUTROPHILS 4.1 thou/uL (1.4-8.2)
--- NOTE | 2020-12-28 14:24 | NUR ---
ASSESSMENT: CM REVIEWED CHART AND SPOKE WITH PATIENT AT THE BEDSIDE ALONG WITH HER SON. PT ADMITS FROM HOME AFTER A FALL AND ALSO HAS A UTI. PT REPORTS SHE LIVES IN A HOUSE WITH HER SPOUSE. PT STATES THAT SHE HAS TWO STEPS TO ENTER THE HOME WITH A [facility]ANDR[facility] AND REPORTS FALLING THERE. PT REPORTS THAT SHE NORMALLY USES A ROLLATER WALKER AND ALSO HAS A CANE. PT REPORTS HAVING MULTIPLE GRAB BARS IN THE SHOWER. PT REPORTS THAT SHE IS INTERESTED IN SNF AT [facility] IF POSSIBLE AND THEN PLANS ON TRANSITIONING TO LIVE THERE. PT REPORTS SHE AND HER HAD TOURED THERE BEFORE THE PANDEMIC AND THOUGHT ABOUT MOVING THERE BUT STATES THEY HELD OFF DURING THE PANDEMIC. PT IS CURRENTLY ON IV ANBX AND AWAITING FURTHER RECOMMENDATIONS AT THIS TIME. PT ALSO HAS PT/OT BUT EVALS ARE PENDING PT JUST ADMITTED TO THE UNIT. PT IS HOPING SHE CAN GO TO [facility] FOR SNF AND TRANSITION TO LIVING THERE WHETHER THEY HAVE AL/LTC. CM FAXED REFERRAL TO [facility] AND AWAITING TO TALK WITH ADMISSIONS. NO DISCHARGE ANTICIPATED OVER THE WEEKEND. CM WILL CONTINUE TO FOLLOW.
--- NOTE | 2020-12-28 15:02 | NUR ---
ARRIVED TO 4S VIA BED. A/O X 3 FORGETFUL. ROOM AIR. BEDBOUND. RIGHT HAND IV WITH NS @ 75 MLS/HR. BILATERAL KNEE BRUISES. TRAMADOL GIVEN FOR PAIN. AT BEDSIDE. FELL ON KNEES AT HOME TRING TO GO UP HER STEPS.
[2020-12-28 15:29] LABS: FOLIC ACID 21.2 ng/mL (8.6-58.9)
--- NOTE | 2020-12-29 01:23 | NUR ---
UPON SHIFT REPORT, PT DAUGHTER AT BEDSIDE, PT DENYING PAIN AND SOB WHILE ON ROOM AIR. UPON SHIFT ASSESSMENT, PT AOX4. PT DENIES PAIN AT REST, REPORTS 7/10 PAIN WHEN LYING FLAT OR WITH MOVEMENT. PT RECEIVING PRN PO TRAMADOL QHS AND Q6HR WITH PRN PO APAP Q4HR AVAILABLE. PT CONTINUES TO DENY SOB WHILE ON ROOM AIR. PT TOLERATING PO INTAKE OF FLUIDS AND REGULAR DIET WITHOUT ISSUE. PT WITHOUT NAUSEA OR EMESIS. PT INCONTINENT OF BOWEL AND BLADDER, REDNESS TO SACRUM NOTED, BARRIER CREAM APPLIED. PT RESTING IN BED THROUGHOUT SHIFT, FREQUENT REPOSITIONING ENCOURAGED, REPOSITIONING ASSISTANCE REFUSED PT REPORTS COMFORT IN SEMI-FOWLERS POSITION WITHOUT BLE ELEVATED. PT WITH GENERALIZED WEAKNESS. PT REPORTS CHRONIC, INTERMITTENT NUMBNESS IN NECK, BACK, AND BLE. CAPILLARY REFILL LESS THAN 3SEC, PEDAL PULSES FAINT, PULSES TO BUE PALPABLE. PITTING +2 EDEMA NOTED TO BLE. PT ENCOURAGED TO NOTIFY STAFF FOR ALL NEEDS, CALL LIGHT WITHIN REACH, BED ALARM ON, BED LOCKED IN LOWEST POSITION, ROOM REMAINS NEAR NURSES STATION, FREQUENT MONITORING WILL CONTINUE.
[2020-12-29 06:36] LABS: HEMATOCRIT 36.4 % (37.0-47.0); HEMOGLOBIN 11.9 gm/dL (12.0-15.0); MCH 30.7 pg (26.0-34.0); MCHC 32.7 g/dL (28.0-37.0); MCV 93.8 fL (80.0-100.0); PLATELET COUNT 128 thou/uL (150-400); RBC 3.88 mil/uL (4.20-5.00); RDW 14.7 % (10.5-14.5); WBC 18.6 thou/uL (4.0-11.0)
[2020-12-29 07:04] LABS: CALCIUM 9.2 mg/dL (8.5-10.1); MAGNESIUM 2.1 mg/dL (1.8-2.4)
[2020-12-29 10:16] LABS: ABSOLUTE NEUTROPHILS 4.8 thou/uL (1.4-8.2); ANISOCYTOSIS 1+
[2020-12-29 10:20] LABS: ATYPICAL LYMPHS 2 %
[2020-12-29 15:25] VITALS: BP 142/98
--- NOTE | 2020-12-29 18:39 | NUR ---
ASSUMED PT CARE AROUND 714. PT A X O 4, ON ROOM AIR, LIMB ALERT LEFT SIDE. IV RT HAND/NS/75MLS/HR. INCONTINENT OF BLADDER. WORKED WITH PT X OT TODAY. FALL PRECT IN PLACE. HOURLY ROUNDING DONE.SHIFT REPORT GIVEN TO ROAD TRAFFIC CONTROLLER.
[2020-12-29 19:42] VITALS: BP 136/45
--- NOTE | 2020-12-30 05:45 | NUR ---
Pt. rested quietly during the night when checked on during frequent rounds. She c/o back pain and po pain meds given (see emar) with some relief noted. Assisted up to the bedside comode with gait belt,walker and assitance of two people. Bed alarm is on.
[2020-12-30 08:20] VITALS: BP 152/61
[2020-12-30 08:22] VITALS: BP 152/61
[2020-12-30 16:46] VITALS: BP 150/55
[2020-12-30 20:36] VITALS: BP 158/67
[2020-12-30 22:17] VITALS: BP 158/67
[2020-12-31 04:40] VITALS: BP 155/61
--- NOTE | 2020-12-31 04:58 | NUR ---
UPON SHIFT ASSESSMENT, PT AOX4. PT DENIES PAIN AND SOB WHILE ON ROOM AIR. PT RECEIVING PRN PO TRAMADOL Q6HR AND QHS WITH PRN PO APAP Q4HR AVAILABLE. PT TOLERATING PO INTAKE OF FLUIDS AND HEART HEALTHY DIET WITHOUT ISSUE. PT WITHOUT NAUSEA OR EMESIS. PT INCONTINENT OF BLADDER, EXTERNAL FEMALE CATHETER IN PLACE. PT AMBULATING WITH X2 ASSIST AND WALKER TO BEDSIDE COMMODE, GENERALIZED WEAKNESS NOTED. PT RESTING IN BED THROUGHOUT SHIFT, FREQUENT REPOSITIONING ENCOURAGED, PT REFUSING REPOSITIONING ASSISTANCE DUE TO COMFORT PREFERENCES. REDNESS NOTED TO SACRUM, BARRIER CREAM APPLIED. PT REPORTS NUMBNESS AND RIGHT HAND. CAPILLARY REFILL LESS THAN 3SEC, PERIPHERAL PULSES PALPABLE IN ALL EXTREMITIES. PT ENCOURAGED TO NOTIFY STAFF FOR ALL NEEDS, CALL LIGHT WITHIN REACH, BED ALARM ON, BED LOCKED IN LOWEST POSITION, FREQUENT MONITORING WILL CONTINUE.
[2020-12-31 05:46] LABS: CALCIUM 8.7 mg/dL (8.5-10.1); CREATININE 0.9 mg/dL (0.6-1.0); POTASSIUM 3.5 mmol/L (3.5-5.1)
[2020-12-31 05:50] LABS: HEMATOCRIT 36.4 % (37.0-47.0); MCH 30.8 pg (26.0-34.0); MCHC 32.9 g/dL (28.0-37.0); MCV 93.6 fL (80.0-100.0); RBC 3.89 mil/uL (4.20-5.00); RDW 14.3 % (10.5-14.5); WBC 17.1 thou/uL (4.0-11.0)
[2020-12-31 07:37] VITALS: BP 166/64
[2020-12-31] MEDS ORDERED: LIDODERM1 EACH TOP (12:40)
[2020-12-31] MEDS ORDERED: TRAMADOL 50 MG50 MG PO (12:40)
--- NOTE | 2020-12-31 13:57 | NUR ---
Discussed during los with the hospitalist, mri possible today. Cm called, left message with admission at [facility] # [phone], fax # [phone]
[2020-12-31 15:40] VITALS: BP 133/47
[2021-01-01 04:46] VITALS: BP 150/59
--- NOTE | 2021-01-01 07:44 | NUR ---
RECEIVED CARE OF THIS PATIENT AT 1900. PATIENT ALERT AND ORIENTED X4 WITH PERIODS OF FORGETFULLNESS. C/O PAIN, MED GIVEN. NO COUGH NOTED UNTIL USED INHALER. HAD PRODUCTIVE COUGH AFTER. ORDER OBTAINED FOR COUGH MED AND WAS GIVEN. HAS PURWICK IN PLACE. UP WITH MAX ASSIST. SLEPT OFF AND ON DURING NIGHT.
--- NOTE | 2021-01-01 08:14 | NUR ---
Notification possible pressure ulcer. Admit with spinal stenosis s/p fall, and UTI. On regular diet, tolerating well. Nursing documentation indicates redness to sacrum. On B12, vitamin D supplementation. Likely discharge soon back to facility. Low nutrition risk
[2021-01-01 10:09] VITALS: BP 156/69
--- NOTE | 2021-01-01 11:04 | NUR ---
Discuss during los with the hospitalist, ready to dc to skilled rehab at [facility].
[2021-01-01] MEDS ORDERED: CEFPODOXIME PR200 M1 PO (11:43)
== END 2021-01-01 16:43 | DRG 551 ==
LOC: ER 09:28 → 4S 12:00 → ER 12:00 → 4S 12:10
PROVIDERS: Emergency Medicine; Internal Medicine; Nurse Practitioner; ADMIT Hospitalist; ATTEND Hospitalist
DX: M48.061 Spinal stenosis, lumbar region without neurogenic claudication (principal); R65.11 Systemic inflammatory response syndrome (SIRS) of non-infectious origin with acute organ dysfunction; N17.0 Acute kidney failure with tubular necrosis; N39.0 Urinary tract infection, site not specified; N18.9 Chronic kidney disease, unspecified; D69.6 Thrombocytopenia, unspecified; J45.909 Unspecified asthma, uncomplicated; Z20.822 Contact with and (suspected) exposure to COVID-19; S30.0XXA Contusion of lower back and pelvis, initial encounter; B96.4 Proteus (mirabilis) (morganii) as the cause of diseases classified elsewhere; R53.81 Other malaise; E53.8 Deficiency of other specified B group vitamins; I12.9 Hypertensive chronic kidney disease with stage 1 through stage 4 chronic kidney disease, or unspecified chronic kidney disease; R29.6 Repeated falls; E86.0 Dehydration; E55.9 Vitamin D deficiency, unspecified; Z85.3 Personal history of malignant neoplasm of breast; Z90.12 Acquired absence of left breast and nipple; Z90.49 Acquired absence of other specified parts of digestive tract; Z90.710 Acquired absence of both cervix and uterus; Z88.1 Allergy status to other antibiotic agents; Z88.2 Allergy status to sulfonamides; Z88.8 Allergy status to other drugs, medicaments and biological substances; Z23 Encounter for immunization; W18.39XA Other fall on same level, initial encounter; Y93.89 Activity, other specified; Y99.8 Other external cause status; Y92.098 Other place in other non-institutional residence as the place of occurrence of the external cause
CPT/HCPCS: 10195

== ENCOUNTER → 2021-03-11 | Outpatient (CLI) | payer OTHER, MEDICARE ==
[~2021-03-11] MED LIST changes: +CEFPODOXIME PR200 M1 PO; +LIDODERM1 EACH TOP
== END ==
LOC: SJCVC 13:01
PROVIDERS: ATTEND Internal Medicine
DX: R94.31 Abnormal electrocardiogram [ECG] [EKG] (principal); I10 Essential (primary) hypertension; R55 Syncope and collapse; E78.5 Hyperlipidemia, unspecified; R54 Age-related physical debility; Z88.8 Allergy status to other drugs, medicaments and biological substances; Z79.82 Long term (current) use of aspirin; Z79.899 Other long term (current) drug therapy